=== PATIENT | female | born 1950 | race Caucasian/White ===

== ENCOUNTER 2022-07-29 07:50 | Observation (INO) | payer MEDICARE ==
[2022-07-29 09:00] LABS: Hemoglobin 10.2 g/dL (12.0-15.5); Mean Corpuscular HGB CONC 32.6 g/dL (32.0-36.0); Mean Corpuscular Hemoglobin 27.8 pg (27.0-33.0); Mean Corpuscular Volume 85.3 fl (81.6-98.3); Mean Platelet Volume 10.7 fl (7.4-10.4); Platelet Count 292 10x3/uL (150-450); Red Blood Cell (RBC) Count 3.67 10x6/uL (3.90-5.03); White Blood Cell (WBC) Count 11.6 10x3/uL (3.5-10.5)
[2022-07-29 09:02] LABS: ALT (SGPT) 10 U/L (8-55); AST (SGOT) 16 U/L (5-34); Albumin 2.9 g/dL (3.4-4.8); Alkaline Phosphatase 113 U/L (40-110); Anion Gap 14 mmol/L (10-20); BUN (Urea Nitrogen) 55 mg/dL (9.8-20.1); Bilirubin, Total 0.2 mg/dL (0.2-1.2); Calc. Creatinine Clearance 0 mL/min (70-130); Calcium 8.2 mg/dL (7.8-10.44); Carbon Dioxide 21 mmol/L (23-31); Chloride 104 mmol/L (98-107); Estimated GFR 39; Globulin 2.1 g/dL (2.4-3.5); Glucose 97 mg/dL (83-110); Potassium 3.1 mmol/L (3.5-5.1); Sodium 136 mmol/L (136-145)
[2022-07-29 09:04] LABS: MDiff Complete? YES
[2022-07-29 09:19] LABS: Band 18 % (5-11); Eosinophils 6 % (0-10); Lymphocytes 21 % (21-51); Monocytes 14 % (0-10); Neutrophil 40 % (42-75)
[2022-07-29 09:20] LABS: Platelet Morphology Comment Appears Adequate; RBC Morphology Normal
[2022-07-29 09:39] LABS: Bilirubin Neg (Negative); Blood, Urine 50 (Negative); Clarity Cloudy (Clear); Glucose, Urine (Dipstick) Normal (Negative); Ketone, Urine Negative (Negative); Leukocyte 500 (Negative); Nitrite Negative (Negative); Protein, Urine (Dipstick) 100 mg/dl (Neg-Trace); Specific Gravity, Urine 1.015 (1.005-1.030); Urobilinogen Normal mg/dL (Less than 2)
[2022-07-29 09:50] LABS: Bacteria/HPF 4+ HPF (None Seen); Squamous Epithelial 0-3 HPF (0-3); WBC/HPF 21-50 HPF (0-3)
[2022-07-29] MEDS ORDERED: cefTRIAXone\\ROCEPHIN 1 GM VIAL ONE (11:03)
[2022-07-29] MEDS ORDERED: Ondansetron PF 4 MG/2 ML Vial IVP PRN (11:30)
[2022-07-29] MEDS ORDERED: Acetaminophen 650 MG Suppository PR PRN (11:30)
[2022-07-29] MEDS ORDERED: Acetaminophen 325 MG TAB PO PRN (11:30)
[2022-07-29] MEDS ORDERED: Ondansetron ODT 4 MG TAB PO PRN (11:30)
[2022-07-29] MEDS ORDERED: Sodium Chloride 0.9% 1,000 ML IV SCH (11:30)
[2022-07-29] MEDS ORDERED: NS 0.9% w/ 40 MEQ KCL 1,000 ML IV SCH (12:00)
[2022-07-29 12:02] LABS: Magnesium 1.7 mg/dL (1.6-2.6)
[2022-07-29] MEDS ORDERED: Acetaminophen 325 MG TAB ONE (12:04)
[2022-07-29 17:57] VITALS: BMI 31.6
[2022-07-29 18:01] LABS: SARS-CoV-2 NAA Rapid Test Not Detected (NotDetected)
[2022-07-29] MEDS ORDERED: FLU VACC QS2022-23(65YR UP)/PF 240 MCG/0.7 ML SYRINGE IM ONE (18:45)
[2022-07-29] MEDS ORDERED: traMADol HCl 50 MG TAB PO PRN (21:35)
[2022-07-29] MEDS ORDERED: DULoxetine 30 MG CAP PO SCH (21:45)
[2022-07-29] MEDS ORDERED: Zolpidem Tartrate 5 MG TAB PO SCH (21:45)
[2022-07-29] MEDS: traZODone HCl 50 MG TAB PO PRN (21:58)
[2022-07-29] MEDS: Heparin 5,000 UNITS/ML VIAL SC SCH (21:59)
[2022-07-29 23:03] LABS: Campy jejuni + coli by PCR Negative (Negative); STEC Shiga Toxin 1+2 Negative (Negative); Salmonella spp. by PCR Negative (Negative); Shigella spp + EIEC by PCR Negative (Negative)
[2022-07-30 06:13] LABS: Hemoglobin 10.3 g/dL (12.0-15.5); Mean Corpuscular HGB CONC 32.8 g/dL (32.0-36.0); Mean Corpuscular Hemoglobin 27.4 pg (27.0-33.0); Mean Corpuscular Volume 83.5 fl (81.6-98.3); Mean Platelet Volume 9.9 fl (7.4-10.4); Platelet Count 254 10x3/uL (150-450); RBC Distribution Width 14.2 % (11.5-14.5); Red Blood Cell (RBC) Count 3.76 10x6/uL (3.90-5.03); White Blood Cell (WBC) Count 11.3 10x3/uL (3.5-10.5)
[2022-07-30 06:30] LABS: MDiff Complete? YES
[2022-07-30 06:35] LABS: Band 52 % (5-11); Eosinophils 3 % (0-10); Lymphocytes 15 % (21-51); Monocytes 16 % (0-10); Neutrophil 10 % (42-75); Reactive Lymphocytes 3 % (0-10)
[2022-07-30 06:37] LABS: Platelet Morphology Comment Appears Adequate; Toxic Granulation SLIGHT
[2022-07-30 06:38] LABS: Anion Gap 13 mmol/L (10-20); BUN (Urea Nitrogen) 34 mg/dL (9.8-20.1); Calc. Creatinine Clearance 83 mL/min (70-130); Carbon Dioxide 18 mmol/L (23-31); Chloride 111 mmol/L (98-107); Estimated GFR 90; Glucose 92 mg/dL (83-110); Potassium 3.3 mmol/L (3.5-5.1); Sodium 139 mmol/L (136-145)
[2022-07-30 06:39] LABS: RBC Morphology Normal; Reflex for Review?? YES
[2022-07-30] MEDS: Heparin 5,000 UNITS/ML VIAL SC SCH ×2 (08:28→21:16)
[2022-07-30] MEDS ORDERED: Electrolyte Replacement Protocol 1 EACH FS SCH (09:00)
[2022-07-30] MEDS ORDERED: DULoxetine 30 MG CAP PO SCH (09:00)
[2022-07-30] MEDS ORDERED: Potassium Chloride 20 MEQ TAB PO SCH (09:45)
[2022-07-30] MEDS ORDERED: Magnesium 2 GM/50 ML(in water) 2 GM in Premix Bag 1 BAG IVPB SCH (10:00)
[2022-07-30] MEDS ORDERED: cefTRIAXone\\ROCEPHIN 1 GM in Sodium Chloride 0.9% 100 ML IVPB SCH (11:00)
[2022-07-30] MEDS ORDERED: Iopamidol 300 61% 100 ML VIAL FS ONE (11:57)
[2022-07-30] MEDS ORDERED: Ibuprofen 400 MG TAB PO PRN (14:17)
[2022-07-30] MEDS ORDERED: Famotidine 20 MG TAB PO SCH (14:30)
[2022-07-30 14:59] LABS: Phosphorus 2.2 mg/dL (2.3-4.7)
[2022-07-30 15:01] LABS: Potassium 2.9 mmol/L (3.5-5.1)
[2022-07-30] MEDS: Gabapentin 300 MG CAP PO SCH (18:14)
[2022-07-30] MEDS: Potassium Chloride 20 MEQ TAB PO SCH ×2 (18:15→21:14)
[2022-07-30] MEDS: Lactated Ringer's 1,000 ML IV SCH (18:19)
[2022-07-30] MEDS ORDERED: Zolpidem Tartrate 5 MG TAB PO SCH (21:00)
[2022-07-30] MEDS: Famotidine 20 MG TAB PO SCH (21:13)
[2022-07-30] MEDS: traZODone HCl 50 MG TAB PO PRN (21:13)
[2022-07-30] MEDS: DULoxetine 30 MG CAP PO SCH (21:16)
[2022-07-31] MEDS ORDERED: Loperamide HCl 2 MG CAP PO SCH (00:15)
[2022-07-31] MEDS: Gabapentin 300 MG CAP PO SCH ×2 (00:40→09:48)
[2022-07-31] MEDS ORDERED: metroNIDAZOLE 500 MG in Premix Bag 1 BAG IVPB SCH (06:00)
[2022-07-31 06:04] LABS: Hemoglobin 10.9 g/dL (12.0-15.5); Mean Corpuscular HGB CONC 33.2 g/dL (32.0-36.0); Mean Corpuscular Hemoglobin 27.5 pg (27.0-33.0); Mean Corpuscular Volume 82.8 fl (81.6-98.3); Mean Platelet Volume 9.9 fl (7.4-10.4); Platelet Count 285 10x3/uL (150-450); RBC Distribution Width 14.2 % (11.5-14.5); Red Blood Cell (RBC) Count 3.96 10x6/uL (3.90-5.03); White Blood Cell (WBC) Count 11.6 10x3/uL (3.5-10.5)
[2022-07-31 06:20] LABS: ALT (SGPT) 11 U/L (8-55); AST (SGOT) 15 U/L (5-34); Albumin 2.6 g/dL (3.4-4.8); Alkaline Phosphatase 108 U/L (40-110); Anion Gap 11 mmol/L (10-20); BUN (Urea Nitrogen) 22 mg/dL (9.8-20.1); Bilirubin, Total 0.3 mg/dL (0.2-1.2); Calc. Creatinine Clearance 89 mL/min (70-130); Calcium 8.6 mg/dL (7.8-10.44); Carbon Dioxide 21 mmol/L (23-31); Chloride 109 mmol/L (98-107); Estimated GFR 93; Globulin 2.2 g/dL (2.4-3.5); Glucose 82 mg/dL (83-110); Magnesium 1.8 mg/dL (1.6-2.6); Potassium 4.2 mmol/L (3.5-5.1); Protein, Total 4.8 g/dL (5.8-8.1); Sodium 137 mmol/L (136-145)
[2022-07-31 06:35] LABS: MDiff Complete? YES
[2022-07-31 06:42] LABS: Band 54 % (5-11); Eosinophils 2 % (0-10); Lymphocytes 8 % (21-51); Metamyelocyte 1 % (0-0); Monocytes 16 % (0-10); Neutrophil 13 % (42-75); Reactive Lymphocytes 6 % (0-10)
[2022-07-31 06:43] LABS: Platelet Morphology Comment Appears Adequate; Toxic Granulation SLIGHT
[2022-07-31] MEDS ORDERED: Oxybutynin ER 5 MG TAB PO SCH (09:00)
[2022-07-31] MEDS ORDERED: Magnesium 2 GM/50 ML(in water) 2 GM in Premix Bag 1 BAG IVPB SCH (09:00)
[2022-07-31] MEDS: DULoxetine 30 MG CAP PO SCH (09:48)
[2022-07-31] MEDS: Famotidine 20 MG TAB PO SCH (09:48)
[2022-07-31] MEDS: Heparin 5,000 UNITS/ML VIAL SC SCH (09:49)
[2022-07-31] MEDS: Lactated Ringer's 1,000 ML IV SCH (09:51)
[2022-07-31 12:06] VITALS: BP 133/60; TEMP 98.2
[2022-07-31] MEDS ORDERED: cefTRIAXone\\ROCEPHIN 2 GM in Sodium Chloride 0.9% 100 ML IVPB SCH (13:00)
== END 2022-07-31 13:30 | disposition home health service (06) ==
LOC: CSHERS 07:50 → CSHTELE 16:31
PROVIDERS: ADMIT Family Medicine; ATTEND Family Medicine
DX: A41.9 Sepsis, unspecified organism (principal); R53.1 Weakness; R19.7 Diarrhea, unspecified; N17.9 Acute kidney failure, unspecified; E87.6 Hypokalemia; I95.9 Hypotension, unspecified; E86.1 Hypovolemia; I08.3 Combined rheumatic disorders of mitral, aortic and tricuspid valves; I11.0 Hypertensive heart disease with heart failure; I50.32 Chronic diastolic (congestive) heart failure; E86.9 Volume depletion, unspecified; N30.90 Cystitis, unspecified without hematuria; B96.20 Unspecified Escherichia coli [E. coli] as the cause of diseases classified elsewhere; Z20.822 Contact with and (suspected) exposure to COVID-19; Z79.899 Other long term (current) drug therapy
CPT/HCPCS: 0240U; 71045; 74178; 80048; 80053 ×2; 83605; 83735 ×2; 84100; 84132 ×2; 84484; 85025 ×3; 87040; 87070; 87086; 87186; 87205; 87324; 87449; 87505; 93005; 96365; 96372; 96375 ×2; 96376 ×2; 99285; G0378 ×4; 36415; 81003; 81015; 85060; J0696; J1644; J1956; J3475; J3480; J3490; J7120; Q9967